=== PATIENT | female | born 1995 | race Caucasian/White ===

== ENCOUNTER → 2017-06-05 | Outpatient (CLI) | payer OTHER ==
[~2017-06-05] MED LIST: BCPILLS PO; DILT120C68 PO; NEBI10TA2 PO
[2017-06-05 15:37] LABS: BASO % 0.3 %; BASO ABS # 0.02 K/uL (0-0.2); EOS % 1.4 %; HEMATOCRIT 38.9 % (37-47); HEMOGLOBIN 12.8 g/dL (12.0-16.0); IG# 0.01 K/uL (0.00-0.02); LYMPH % 21.7 %; LYMPH ABS # 1.58 K/uL (1.2-3.4); MEAN CELL VOLUME 85.9 fL (80-100); MEAN CORPUSCULAR HEMOGLOBIN 28.3 pg (25-34); MEAN CORPUSCULAR HGB CONC 32.9 g/dl (32-36); MEAN PLATELET VOLUME 9.3 fL (7.4-10.4); NEUT % 65.5 %; NEUT ABS # 4.76 K/uL (1.4-6.5); PLATELET COUNT 313 K/uL (130-400); RED CELL DISTRIBUTION WIDTH CV 12.9 % (11.5-14.5); RED CELL DISTRIBUTION WIDTH SD 40.8 fL (36.4-46.3); WHITE BLOOD COUNT 7.27 K/uL (4.8-10.8)
[2017-06-05 15:48] LABS: INR 0.9 (0.9-1.1); PTT PATIENT 25.1 SECONDS (21.0-31.0)
[2017-06-05 16:09] LABS: BLOOD UREA NITROGEN 18 mg/dl (7-18); CARBON DIOXIDE 28 mmol/L (21-32); POTASSIUM 3.8 mmol/L (3.5-5.1); SODIUM 138 mmol/L (136-145)
== END | disposition home or self-care (01) ==
LOC: C.LAB 14:46
PROVIDERS: ATTEND Internal Medicine
DX: Z01.818 Encounter for other preprocedural examination (principal); I47.1 Supraventricular tachycardia

== ENCOUNTER 2017-06-11 19:07 | Emergency (ER) | payer OTHER ==
[~2017-06-11] VITALS: Ht 157.5 cm; Wt 52.0 kg
[~2017-06-11 19:07] MED LIST changes: -DILT120C68 PO
[2017-06-11 19:24] VITALS: TEMP 37; Ht 157.5 cm; Wt 52.0 kg
[2017-06-11 19:33] VITALS: O2SAT 100
[2017-06-11] MEDS ORDERED: ADENOSINE IV SOLN 3 MG/ML 2 ML VIAL ONE ×3 (19:34→19:49)
[2017-06-11 20:04] LABS: BASO % 0.3 %; BASO ABS # 0.03 K/uL (0-0.2); EOS % 2.2 %; EOS ABS # 0.26 K/uL (0-0.5); HEMATOCRIT 43.1 % (37-47); HEMOGLOBIN 13.9 g/dL (12.0-16.0); IG# 0.04 K/uL (0.00-0.02); LYMPH % 30.4 %; LYMPH ABS # 3.56 K/uL (1.2-3.4); MEAN CORPUSCULAR HEMOGLOBIN 27.7 pg (25-34); MEAN CORPUSCULAR HGB CONC 32.3 g/dl (32-36); MEAN PLATELET VOLUME 9.5 fL (7.4-10.4); MONO % 8.4 %; MONO ABS # 0.98 K/uL (0.11-0.59); NEUT % 58.4 %; NEUT ABS # 6.85 K/uL (1.4-6.5); PLATELET COUNT 443 K/uL (130-400); RED CELL DISTRIBUTION WIDTH CV 12.9 % (11.5-14.5); RED CELL DISTRIBUTION WIDTH SD 40.9 fL (36.4-46.3); WHITE BLOOD COUNT 11.72 K/uL (4.8-10.8)
[2017-06-11 20:11] LABS: ALBUMIN 4.2 gm/dl (3.4-5.0); ALT/SGPT 12 U/L (12-78); AST/SGOT 11 U/L (15-37); BLOOD UREA NITROGEN 15 mg/dl (7-18); CARBON DIOXIDE 22 mmol/L (21-32); CREATININE 0.76 mg/dl (0.60-1.20); GLUCOSE 92 mg/dl (70-99); POTASSIUM 3.6 mmol/L (3.5-5.1); SODIUM 137 mmol/L (136-145)
[2017-06-11 20:21] LABS: ALKALINE PHOSPHATASE 54 U/L (45-117); TOTAL PROTEIN 8.8 gm/dl (6.4-8.2)
[2017-06-11] MEDS ORDERED: DILT120C68 PO (20:53)
--- NOTE | 2017-06-11 21:01 | EMERGENCY ROOM VISIT NOTE ---
History First contact with patient: 19:26 Chief Complaint: TACHYCARDIA Stated Complaint: TACHYCARDIA History of Present Illness The patient is a 22 year old female who presents to the Emergency Room with complaints of rapid heart beat. She has a has a history of SVT. Her symptoms started around 1700 this evening where she noted to have a consistently elevated heart rate. She was just getting home from classes. She attempted various vagal maneuvers without much relief. She also attempted to rest for 1-2 hours. She had accompanying chest discomfort and dizziness. She had has two similar episodes this month but less intense and she was able to get relief via vagal maneuvers. She has had SVT since she was 9 years ago and will be undergoing an ablation next week via her cold rolling supervisor in [place]. She was recently switched from Verapamil to Diltazem. She denies any fevers, chills, nausea, vomiting, diarrhea, shortness of breath. Denies . Review of Systems See above for pertinent positives & negatives. A total of 10 systems reviewed and were otherwise negative. Past Medical/Surgical History Medical Problems: (1) SVT (supraventricular tachycardia) Social History Smoking Status: Never Smoker Marital Status: single Housing Status: lives with roommate Occupation Status: [employer] student Current/Historical Medications Scheduled Control Pills ( Control Pills), 1 TAB PO DAILY Diltiazem Hcl Ext Rel (Tiazac), 120 MG PO DAILY Physical Exam Vital Signs Date Time Temp Pulse Resp B/P (MAP) Pulse Ox O2 Delivery O2 Flow Rate FiO2 06/11/17 21:29 87 115/81 100 06/11/17 21:00 90 21 122/82 100 Room Air 06/11/17 20:30 87 124/82 100 Room Air 06/11/17 20:17 86 23 101/85 94 Room Air 06/11/17 20:04 84 111/79 100 Room Air 06/11/17 19:57 70 06/11/17 19:52 85 23 107/82 96 Room Air 06/11/17 19:45 221 83/59 99 Room Air 06/11/17 19:42 223 06/11/17 19:33 100 Room Air 06/11/17 19:31 232 06/11/17 19:31 100 Room Air 06/11/17 19:24 37.0 220 18 72/51 Room Air Physical Exam GENERAL: Patient is awake alert in mild distress EYES: The conjunctivae are clear. The pupils are round and reactive. EARS, NOSE, MOUTH AND THROAT: The nose is without any evidence of any deformity. Mucous memranes are moist NECK: The neck is nontender and supple. RESPIRATORY: Normal respiratory effort, no rales, wheezing or ronchi CARDIOVASCULAR: Tachycardia noted - 225 GASTROINTESTINAL: The abdomen is soft. Bowel sounds are present in all quadrants. Abdomen is nontender SKIN: There is no obvious evidence of any rash. NEUROLOGIC: Patient is awake alert and oriented x3 Medical Decision & Procedures Laboratory Results 06/11/17 19:35 Red Blood Count 5.01, Mean Corpuscular Volume 86.0, Mean Corpuscular Hemoglobin 27.7, Mean Corpuscular Hemoglobin Concent 32.3, Mean Platelet Volume 9.5, Neutrophils (%) (Auto) 58.4, Lymphocytes (%) (Auto) 30.4, Monocytes (%) (Auto) 8.4, Eosinophils (%) (Auto) 2.2, Basophils (%) (Auto) 0.3, Neutrophils # (Auto) 6.85, Lymphocytes # (Auto) 3.56, Monocytes # (Auto) 0.98, Eosinophils # (Auto) 0.26, Basophils # (Auto) 0.03 06/11/17 19:35 Test 06/11/17 19:35 White Blood Count 11.72 K/uL (4.8-10.8) Red Blood Count 5.01 M/uL (4.2-5.4) Hemoglobin 13.9 g/dL (12.0-16.0) Hematocrit 43.1 % (37-47) Mean Corpuscular Volume 86.0 fL (80-100) Mean Corpuscular Hemoglobin 27.7 pg (25-34) Mean Corpuscular Hemoglobin Concent 32.3 g/dl (32-36) Platelet Count 443 K/uL (130-400) Mean Platelet Volume 9.5 fL (7.4-10.4) Neutrophils (%) (Auto) 58.4 % Lymphocytes (%) (Auto) 30.4 % Monocytes (%) (Auto) 8.4 % Eosinophils (%) (Auto) 2.2 % Basophils (%) (Auto) 0.3 % Neutrophils # (Auto) 6.85 K/uL (1.4-6.5) Lymphocytes # (Auto) 3.56 K/uL (1.2-3.4) Monocytes # (Auto) 0.98 K/uL (0.11-0.59) Eosinophils # (Auto) 0.26 K/uL (0-0.5) Basophils # (Auto) 0.03 K/uL (0-0.2) RDW Standard Deviation 40.9 fL (36.4-46.3) RDW Coefficient of Variation 12.9 % (11.5-14.5) Immature Granulocyte % (Auto) 0.3 % Immature Granulocyte # (Auto) 0.04 K/uL (0.00-0.02) Anion Gap 10.0 mmol/L (3-11) Est Creatinine Clear Calc Drug Dose 92.6 ml/min Estimated GFR () 130.0 Estimated GFR (Non- 112.1 BUN/Creatinine Ratio 20.0 (10-20) Calcium Level 9.0 mg/dl (8.5-10.1) Magnesium Level 2.2 mg/dl (1.8-2.4) Total Bilirubin 0.2 mg/dl (0.2-1) Direct Bilirubin < 0.1 mg/dl (0-0.2) Aspartate Amino Transf (AST/SGOT) 11 U/L (15-37) Alanine Aminotransferase (ALT/SGPT) 12 U/L (12-78) Alkaline Phosphatase 54 U/L (45-117) Troponin I < 0.015 ng/ml (0-0.045) Total Protein 8.8 gm/dl (6.4-8.2) Albumin 4.2 gm/dl (3.4-5.0) Globulin 4.6 gm/dl (2.5-4.0) Albumin/Globulin Ratio 0.9 (0.9-2) Thyroid Stimulating Hormone (TSH) 1.500 uIu/ml (0.300-4.500) Medications Administered Medications (Trade) Dose Ordered Sig/Marie Route Start Time Stop Time Status Last Admin Dose Admin Adenosine (Adenosine Iv) 6 mg STK-MED ONCE .ROUTE 06/11/17 19:34 06/11/17 19:35 DC 06/11/17 19:39 6 MG Adenosine (Adenosine Iv) 6 mg STK-MED ONCE .ROUTE 06/11/17 19:42 06/11/17 19:43 DC 06/11/17 19:43 6 MG Adenosine (Adenosine Iv) 12 mg STK-MED ONCE .ROUTE 06/11/17 19:49 06/11/17 19:50 DC 06/11/17 19:52 12 MG ED Course 1924: The patient was evaluated in A11. A complete history and physical exam was performed. 0: Adenosine 6mg was given 0: Adenosine 12 mg was given. 1 L fluid bolus started 1949: Adenosine 12mg was given. At this point she did convert to normal sinus rhythm 2030: patient reevaluated and she was feeling better and maintained sinus rhythm 2044: all results were discussed with the patient. Discharge plan addressed Medical Decision This is a 22 y/o F who presents with persistent tachycardia. EKG revealed SVT at a rate of 220. She has a history of SVT. Vagal maneuvers were attempted but were not successful in normalizing her rate. She was given 6 mg of adenosine followed by 12 mg of adenosine x 2 before there was resolution of her SVT. Fluid bolus was also initiated. Repeat EKG revealed normal sinus rhythm. Blood work was normal; no electrolyte abnormalities or indication of infection. The patient was advised of all results and follow up plans were addressed. She will be meeting with her cold rolling supervisor in [place] next week for ablation. She was advised to continue her medications and return to the ER if there were recurrence of symptoms or other concerns. Impression Primary Impression: SVT (supraventricular tachycardia) Departure Information Dispostion Home / Self-Care Referrals Zach Mendenhall MD (PCP) Forms WORK / SCHOOL INSTRUCTIONS, HOME CARE DOCUMENTATION FORM, IMPORTANT VISIT INFORMATION Patient Instructions My [facility] Additional Instructions You were seen in the ED for recurrence of rapid heartbeat (SVT). Vagal manuvers were attempted without improvement in the rate. You eventually received 3 doses of adenosine after which your heart rate normalized. Please follow up with your cold rolling supervisor as scheduled If you have any further symptoms, chest pain, shortness of breath, rapid heart beat, dizziness, please come back to the ED or call your PCP.
[2017-06-11 21:29] VITALS: BP 115/81; PULSE 87; O2SAT 100
--- NOTE | 2017-06-12 00:05 | EMERGENCY ROOM VISIT NOTE ---
History Report prepared by El: Aníbal Yo Under the Supervision of: Dr. Leland Guardado M.D. First contact with patient: 19:33 Chief Complaint: TACHYCARDIA Stated Complaint: TACHYCARDIA History of Present Illness The patient is a 22 year old female who presents to the Emergency Room with complaints of constant tachycardia starting around 1700 tonight. The patient notes that she was laying in bed when it started, and when she got up she was a little light headed. She reports that she is supposed to have an ablation next week, and she states that she has had an ablation before in the past. The patient notes that she had a similar episode of tachycardia four days ago, though it resolved in five minutes. She states that the last time she was cardioverted was in March. She denies any fever, vomiting, diarrhea, recent illness, leg swelling, shortness of breath or chest pain, though she can feel her heart racing. The patient denies any chance of . She states that she is currently on diltiazem. Source of History: patient Onset: 1700 Position: other (heart) Quality: other (thacycardia) Timing: constant Associated Symptoms: No fevers, No chest pain, No SOB, No vomiting, No diarrhea Note: Associated symptoms: Feels her heart racing. Review of Systems See HPI for pertinent positives & negatives. A total of 10 systems reviewed and were otherwise negative. Past Medical & Surgical Medical Problems: (1) SVT (supraventricular tachycardia) Family History Hypertension Social History Smoking Status: Never Smoker Marital Status: single Housing Status: lives with roommate Occupation Status: [employer] student Current/Historical Medications Scheduled Control Pills ( Control Pills), 1 TAB PO DAILY Diltiazem Hcl Ext Rel (Tiazac), 120 MG PO DAILY Allergies Coded Allergies: No Known Allergies (Unverified , 06/11/17) Physical Exam Vital Signs Date Time Temp Pulse Resp B/P (MAP) Pulse Ox O2 Delivery O2 Flow Rate FiO2 06/11/17 21:29 87 115/81 100 06/11/17 21:00 90 21 122/82 100 Room Air 06/11/17 20:30 87 124/82 100 Room Air 06/11/17 20:17 86 23 101/85 94 Room Air 06/11/17 20:04 84 111/79 100 Room Air 06/11/17 19:57 70 06/11/17 19:52 85 23 107/82 96 Room Air 06/11/17 19:45 221 83/59 99 Room Air 06/11/17 19:42 223 06/11/17 19:33 100 Room Air 06/11/17 19:31 232 06/11/17 19:31 100 Room Air 06/11/17 19:24 37.0 220 18 72/51 Room Air Physical Exam Constitutional: Vital signs reviewed. Eyes: Pupils are equal round reactive to light. Conjunctiva are noninjected. ENT: Pharynx is clear without erythema or exudate. Mucous membranes are moist. Neck supple without meningeal signs. Respiratory: Clear to auscultation bilaterally. Breath sounds are equal bilaterally. Cardiovascular: Tachycardic rate is 220. GI: Soft, nondistended and nontender. Bowel sounds are present. Musculoskeletal: No peripheral edema. No lower extremity tenderness. Integumentary: No cyanosis. Neurological: The patient is awake and alert. No focal deficits. Psychiatric: Normal affect. Medical Decision & Procedures Laboratory Results 06/11/17 19:35 Red Blood Count 5.01, Mean Corpuscular Volume 86.0, Mean Corpuscular Hemoglobin 27.7, Mean Corpuscular Hemoglobin Concent 32.3, Mean Platelet Volume 9.5, Neutrophils (%) (Auto) 58.4, Lymphocytes (%) (Auto) 30.4, Monocytes (%) (Auto) 8.4, Eosinophils (%) (Auto) 2.2, Basophils (%) (Auto) 0.3, Neutrophils # (Auto) 6.85, Lymphocytes # (Auto) 3.56, Monocytes # (Auto) 0.98, Eosinophils # (Auto) 0.26, Basophils # (Auto) 0.03 06/11/17 19:35 Test 06/11/17 19:35 White Blood Count 11.72 K/uL (4.8-10.8) Red Blood Count 5.01 M/uL (4.2-5.4) Hemoglobin 13.9 g/dL (12.0-16.0) Hematocrit 43.1 % (37-47) Mean Corpuscular Volume 86.0 fL (80-100) Mean Corpuscular Hemoglobin 27.7 pg (25-34) Mean Corpuscular Hemoglobin Concent 32.3 g/dl (32-36) Platelet Count 443 K/uL (130-400) Mean Platelet Volume 9.5 fL (7.4-10.4) Neutrophils (%) (Auto) 58.4 % Lymphocytes (%) (Auto) 30.4 % Monocytes (%) (Auto) 8.4 % Eosinophils (%) (Auto) 2.2 % Basophils (%) (Auto) 0.3 % Neutrophils # (Auto) 6.85 K/uL (1.4-6.5) Lymphocytes # (Auto) 3.56 K/uL (1.2-3.4) Monocytes # (Auto) 0.98 K/uL (0.11-0.59) Eosinophils # (Auto) 0.26 K/uL (0-0.5) Basophils # (Auto) 0.03 K/uL (0-0.2) RDW Standard Deviation 40.9 fL (36.4-46.3) RDW Coefficient of Variation 12.9 % (11.5-14.5) Immature Granulocyte % (Auto) 0.3 % Immature Granulocyte # (Auto) 0.04 K/uL (0.00-0.02) Anion Gap 10.0 mmol/L (3-11) Est Creatinine Clear Calc Drug Dose 92.6 ml/min Estimated GFR () 130.0 Estimated GFR (Non- 112.1 BUN/Creatinine Ratio 20.0 (10-20) Calcium Level 9.0 mg/dl (8.5-10.1) Magnesium Level 2.2 mg/dl (1.8-2.4) Total Bilirubin 0.2 mg/dl (0.2-1) Direct Bilirubin < 0.1 mg/dl (0-0.2) Aspartate Amino Transf (AST/SGOT) 11 U/L (15-37) Alanine Aminotransferase (ALT/SGPT) 12 U/L (12-78) Alkaline Phosphatase 54 U/L (45-117) Troponin I < 0.015 ng/ml (0-0.045) Total Protein 8.8 gm/dl (6.4-8.2) Albumin 4.2 gm/dl (3.4-5.0) Globulin 4.6 gm/dl (2.5-4.0) Albumin/Globulin Ratio 0.9 (0.9-2) Thyroid Stimulating Hormone (TSH) 1.500 uIu/ml (0.300-4.500) Laboratory results as reviewed by me. Medications Administered Medications (Trade) Dose Ordered Sig/Marie Route Start Time Stop Time Status Last Admin Dose Admin Adenosine (Adenosine Iv) 6 mg STK-MED ONCE .ROUTE 06/11/17 19:34 06/11/17 19:35 DC 06/11/17 19:39 6 MG Adenosine (Adenosine Iv) 6 mg STK-MED ONCE .ROUTE 06/11/17 19:42 06/11/17 19:43 DC 06/11/17 19:43 6 MG Adenosine (Adenosine Iv) 12 mg STK-MED ONCE .ROUTE 06/11/17 19:49 06/11/17 19:50 DC 06/11/17 19:52 12 MG ECG Per My Interpretation Indication: tachycardia Rate (beats per minute): 225 Rhythm: SVT Findings: ST depression (diffusely), other (No widening of QRS) Change: Repeat EKG: Normal sinus rhythm at 75bpm. QRS is 70ms. No ST elevation or depression. ED Course 1932: The patient was evaluated in room A11. A complete history and physical exam was performed. 1933: Adenosine 6mg IV 1941: Adenosine 6mg IV 1948: Adenosine 12mg IV 2018: I reevaluated the patient, and she was still in normal sinus rhythm. 2053: I discussed the test results with the patient. She will be discharged home. Medical Decision This is a 22-year-old female presents with tachycardia. Differential diagnosis includes SVT, atrial fibrillation with RVR, WPW, metabolic derangement, electrolyte abnormality. I did perform a limited focused review of portions of the patient's old chart on the electronic medical record. The patient was here in February and was cardioverted with 6mg of adenosine. I did evaluate the patient as noted above. IV access was established. The patient was placed on a continuous nuclear monitoring technician. I did order and personally review the patient's 12-lead EKG as described above. Twelve-lead EKG demonstrates SVT. I did attempt vagal maneuvers as well as carotid massage. Her SVT did not resolve. I did treat her with adenosine 6 mg fast IV push. She had no resolution of her symptoms. She was given 12 mg of adenosine IV. She was persistently in SVT. I did order an additional 12 mg of adenosine IV push. I did push to flush myself with this dosage. She did convert to normal sinus rhythm. I did repeat another twelve-lead EKG which showed normal sinus rhythm per my interpretation without any acute ischemic events. No ST elevations or depressions were noted. No ectopy was noted. I did order and review the patient's blood work as noted in the electronic medical record. Lab work is unremarkable. She is scheduled for ablation next week. She is asymptomatic and was discharged home. Resident Physician Supervision Note: I did evaluate and examine this patient myself. I did guide management for the patient. I agree with the resident's Dr. Romeo assessment as discussed. Please see the resident's dictation for further details. Medication Reconcilliation Current Medication List: was personally reviewed by me Blood Pressure Screening Patient's blood pressure: Normal blood pressure Impression Primary Impression: SVT (supraventricular tachycardia) Critical Care I have personally spent 36 minutes of critical care time in the direct management of this patient. This includes bedside care, interpretation of diagnostic studies, and testing, discussion with consultants, patient, and family members, and other required patient management activities. This 36 minutes is in excess of all separately billable procedures. Scribe Attestation The scribe's documentation has been prepared under my direct and personally reviewed by me in its entirety. I confirm that the note above accurately reflects all work, treatment, procedures, and medical decision making performed by me. Departure Information Dispostion Home / Self-Care Referrals No Doctor, Assigned (PCP) Forms HOME CARE DOCUMENTATION FORM, IMPORTANT VISIT INFORMATION, WORK / SCHOOL INSTRUCTIONS Patient Instructions My [facility] Additional Instructions You were seen in the ED for recurrence of rapid heartbeat (SVT). Vagal manuvers were attempted without improvement in the rate. You eventually received 3 doses of adenosine after which your heart rate normalized. Please follow up with your administrative support clerk as scheduled If you have any further symptoms, chest pain, shortness of breath, rapid heart beat, dizziness, please come back to the ED or call your PCP.
== END 2017-06-11 21:31 | disposition home or self-care (01) ==
LOC: C.EDB 19:08 → C.EDA 21:31
DX: I47.1 Supraventricular tachycardia (principal); Z79.3 Long term (current) use of hormonal contraceptives; Z82.49 Family history of ischemic heart disease and other diseases of the circulatory system